=== PATIENT | male | born 1965 | race Asian ===

== ENCOUNTER 2018-09-21 21:03 | Emergency (ER) | payer BC ==
[~2018-09-21 21:03] MED LIST: ISOVUE-370 76%-LOCM 1 ML ONE
[2018-09-21 21:49] LABS: #Basophils 0.1 thou/uL (0.0-0.2); #Eosinphils 0.1 thou/uL (0.0-0.7); #Lymphocytes 1.7 thou/uL (1.20-3.40); #Monocytes 0.4 thou/uL (0.11-0.59); #Neutrophils 2.9 thou/uL (1.40-6.50); %Basophils 1.4 % (0.0-1.0); %Eosinophils 1.5 % (0.0-10.0); %Lymphocytes 32.9 % (21.0-51.0); %Neutrophils 57.3 % (42.0-75.0); Hemoglobin 13.4 g/dL (14.0-18.0); Mean Corpuscular HGB CONC 33.8 g/dL (32.0-36.0); Mean Corpuscular Hemoglobin 33.2 pg (27.0-31.0); Mean Corpuscular Volume 98.2 fL (78.0-98.0); Mean Platelet Volume 6.8 fL (7.4-10.4); Platelet Count 334 thou/uL (130-400); RBC Distribution Width 11.1 % (11.5-14.5); Red Blood Cell (RBC) Count 4.02 mill/uL (4.70-6.10); White Blood Cell (WBC) Count 5.1 thou/uL (4.8-10.8)
[2018-09-21 21:58] LABS: INR-International Normal Ratio 1.1; PTT 33.3 SEC (22.9-36.1); Prothrombin Time 13.9 SEC (12.0-14.7)
[2018-09-21 22:09] LABS: ALT (SGPT) 14 U/L (8-55); AST (SGOT) 18 U/L (5-34); Albumin 3.9 g/dL (3.5-5.0); Alkaline Phosphatase 59 U/L (40-150); Anion Gap 11 mmol/L (10-20); BUN (Urea Nitrogen) 17 mg/dL (8.4-25.7); Bilirubin, Total 0.3 mg/dL (0.2-1.2); Calc. Creatinine Clearance 0 mL/min (70-130); Calcium 8.2 mg/dL (7.8-10.44); Carbon Dioxide 27 mmol/L (22-29); Chloride 108 mmol/L (98-107); Estimated GFR-MDRD 66; Globulin 2.5 g/dL (2.4-3.5); Glucose 114 mg/dL (70-105); Potassium 4.1 mmol/L (3.5-5.1); Protein, Total 6.4 g/dL (6.0-8.3); Sodium 142 mmol/L (136-145)
--- NOTE | 2018-09-22 07:46 | CT ---
CT OF ABDOMEN AND PELVIS WITH CONTRAST: INDICATION: Postprocedural GI bleeding, abdominal pain. FINDINGS: No significant abnormalities at the imaged lung bases are seen. There is a small hypoattenuation wit hin the right hepatic lobe, too small to further characterize. The spleen and pancreas are unremarka ble. No hydronephrosis of either kidney. No evidence of adrenal mass. The bowel is incompletely ev aluated without enteric contrast. There are diffuse-opacified loops of bowel. Paucity of intraabdom inal fat limits visualized intraabdominally. The contrast-opacified abdominal aorta is nonaneurysmal with mild vascular calcification. No free air. No significant ascites is visualized. The imaged s keletal structures reveal no acute process. IMPRESSION: 1. Limited evaluation of the unopacified bowel. If there is clinical concern for active GI bleeding , recommend followup with tagged red cell nuclear medicine GI bleeding exam. 2. Nonspecific fluid-filled bowel is seen throughout. This includes loops of colon. Recommend humberto elation to exclude evidence of gastroenteritis. POS: CHANTAL
== END 2018-09-22 02:23 | disposition home or self-care (01) ==
LOC: ERS 21:03
DX: K91.840 Postprocedural hemorrhage of a digestive system organ or structure following a digestive system procedure (principal)
CPT/HCPCS: 36415; 74177; 80053; 85025; 85610; 85730; 86850; 86900; 86901

== ENCOUNTER 2018-09-22 19:03 | Inpatient (IN) | payer BC ==
[2018-09-22 19:41] LABS: #Lymphocytes 1.4 thou/uL (1.20-3.40); #Monocytes 0.5 thou/uL (0.11-0.59); #Neutrophils 5.4 thou/uL (1.40-6.50); %Basophils 0.6 % (0.0-1.0); %Eosinophils 0.6 % (0.0-10.0); %Lymphocytes 19.1 % (21.0-51.0); %Monocytes 6.6 % (0.0-10.0); %Neutrophils 73.1 % (42.0-75.0); Hemoglobin 10.5 g/dL (14.0-18.0); Mean Corpuscular HGB CONC 34.2 g/dL (32.0-36.0); Mean Corpuscular Hemoglobin 33.6 pg (27.0-31.0); Mean Corpuscular Volume 98.2 fL (78.0-98.0); Mean Platelet Volume 6.9 fL (7.4-10.4); Platelet Count 297 thou/uL (130-400); RBC Distribution Width 11.2 % (11.5-14.5); Red Blood Cell (RBC) Count 3.14 mill/uL (4.70-6.10); White Blood Cell (WBC) Count 7.4 thou/uL (4.8-10.8)
[2018-09-22 19:47] LABS: INR-International Normal Ratio 1.1
[2018-09-22 20:02] LABS: ALT (SGPT) 12 U/L (8-55); AST (SGOT) 15 U/L (5-34); Albumin 3.7 g/dL (3.5-5.0); Alkaline Phosphatase 54 U/L (40-150); Anion Gap 9 mmol/L (10-20); BUN (Urea Nitrogen) 16 mg/dL (8.4-25.7); Bilirubin, Total 0.3 mg/dL (0.2-1.2); Calc. Creatinine Clearance 0 mL/min (70-130); Carbon Dioxide 27 mmol/L (22-29); Chloride 107 mmol/L (98-107); Estimated GFR-MDRD Greater than 90; Globulin 2.3 g/dL (2.4-3.5); Glucose 128 mg/dL (70-105); Potassium 3.3 mmol/L (3.5-5.1); Sodium 140 mmol/L (136-145)
[2018-09-22 22:57] VITALS: BMI 18.6
[2018-09-23] MEDS ORDERED: Sodium Chloride 0.9% 1,000 ML IV SCH (00:30)
[2018-09-23] MEDS ORDERED: Ondansetron PF 4 MG/2 ML Vial IVP PRN (00:31)
[2018-09-23] MEDS ORDERED: Acetaminophen 325 MG TAB PO PRN (00:31)
[2018-09-23] MEDS ORDERED: Ondansetron ODT 4 MG TAB PO PRN (00:31)
[2018-09-23] MEDS: Sodium Chloride 0.9% 1,000 ML IV SCH ×3 (01:17→18:58)
--- NOTE | 2018-09-23 02:23 | HP ---
CHIEF COMPLAINT: Bloody stools. HISTORY OF PRESENT ILLNESS: Mr. Judge is a 53-year-old man who presents with complaints of bloody bowel movements. He underwent a colonoscopy yesterday and states he was found to have colitis. Reports having a bowel movement that was very thin and small with some blood mixed in. Today, however, he has had several episodes of bright red blood per rectum with a small amount of stool, but felicia blood per rectum. He reports feeling slightly lightheaded, but denies any syncope. Reports mild shortness of breath today. Denies having any chest pain or palpitations. The patient denies any abdominal pain, distention, or cramping. He is not on any blood thinners. Denies any medical comorbidities except for known colitis. REVIEW OF SYSTEMS: He denies having any fevers, chills, or sweats. Apart from those mentioned above in HPI, all other review of systems are negative. PAST MEDICAL HISTORY: Colitis. PAST SURGICAL HISTORY: 1. He has had oral surgery x2 in the past. 2. Recent colonoscopy done yesterday. SOCIAL HISTORY: The patient reports drinking 1-2 alcoholic beverages a week. States he drinks socially. Denies any drug use. He does not smoke. ALLERGIES: NO KNOWN DRUG ALLERGIES. CURRENT MEDICATIONS: None. PHYSICAL EXAMINATION: GENERAL: The patient appears thin, well developed, and in no acute distress. VITAL SIGNS: Temperature 98.6, pulse 74, respirations 18, blood pressure 109/62, O2 saturation 99% on room air. HEENT: Normocephalic and atraumatic. Pupils are equal, round, and reactive to light. Sclerae are without icterus. Oropharynx is clear. NECK: Supple with no lymphadenopathy. LUNGS: Clear to auscultation bilaterally without wheezes, rales, or rhonchi. CARDIAC: Regular rate and rhythm without audible murmurs, rubs, or gallops. ABDOMEN: Soft, nontender, nondistended. Hyperactive bowel sounds present. No guarding or rigidity. No renal angle tenderness. EXTREMITIES: Without edema or swelling. NEUROLOGIC: Alert and oriented x3. SKIN: Without rash or jaundice. LABORATORY DATA: White blood count 7.4, hemoglobin 10.5, hematocrit 30.8, platelets 297. PT 14, INR 1.1, PTT 29.6. Sodium 140, potassium 3.3, anion gap 9, BUN 16, creatinine 0.86, GFR greater than 90, glucose 128, calcium 8, total bilirubin 0.3, AST 15, ALT 12, alkaline phosphatase 54, total protein 6, albumin 3.7, globulin 2.3. Hemoglobin obtained yesterday was 13.4. IMAGING DATA: CT of the abdomen and pelvis, 09/21/2018. Limited evaluation of unopacified bowel. Nonspecific fluid-filled bowel seen throughout. This includes loops of colon. Recommend correlation to exclude evidence of gastroenteritis. IMPRESSION AND PLAN: Mr. Judge is a pleasant 53-year-old man who is status post a colonoscopy done on 09/21/2018, presented to the ER due to bloody stools. He is being admitted for management of the following. 1. Anemia. Hemoglobin done on 09/21 was 13.4, and after presenting with bloody stools, a hemoglobin in the ED was low at 10.5. The patient has had one additional bloody stool in the ER. He denies having any associated abdominal pain. No hematemesis, nausea, or vomiting. We will obtain a stat H and H and if further reduce, we will transfuse with packed red blood cells. His blood pressure is 109/62. We will continue to monitor. He is not tachycardic. Not experiencing any symptoms of lightheadedness or shortness of breath at present. He is found resting comfortably. We will continue to monitor and we will give IV fluids. Consult has been placed to GI. 2. Hypokalemia. Replace potassium and continue to monitor electrolytes. 3. Gastrointestinal prophylaxis. 4. Deep venous thrombosis prophylaxis with mechanical SCDs only. No pharmacoprophylaxis, given the GI bleed. 5. Full code status. His surrogate decision maker . The patient's case was discussed with Dr. Ruelas, who agrees with plan of care as described above. Job ID: [id number]
[2018-09-23 08:36] LABS: #Basophils 0.1 thou/uL (0.0-0.2); #Eosinphils 0.1 thou/uL (0.0-0.7); #Lymphocytes 2.8 thou/uL (1.20-3.40); #Monocytes 0.6 thou/uL (0.11-0.59); #Neutrophils 4.4 thou/uL (1.40-6.50); %Basophils 0.8 % (0.0-1.0); %Lymphocytes 35.4 % (21.0-51.0); %Neutrophils 55.7 % (42.0-75.0); Mean Corpuscular HGB CONC 33.4 g/dL (32.0-36.0); Mean Corpuscular Hemoglobin 31.5 pg (27.0-31.0); Mean Corpuscular Volume 94.2 fL (78.0-98.0); Mean Platelet Volume 7.1 fL (7.4-10.4); Platelet Count 254 thou/uL (130-400); RBC Distribution Width 13.8 % (11.5-14.5); Red Blood Cell (RBC) Count 3.19 mill/uL (4.70-6.10); White Blood Cell (WBC) Count 7.8 thou/uL (4.8-10.8)
[2018-09-23 08:58] LABS: ALT (SGPT) 11 U/L (8-55); AST (SGOT) 13 U/L (5-34); Albumin 3.4 g/dL (3.5-5.0); Alkaline Phosphatase 47 U/L (40-150); Anion Gap 7 mmol/L (10-20); BUN (Urea Nitrogen) 12 mg/dL (8.4-25.7); Bilirubin, Total 0.7 mg/dL (0.2-1.2); Calc. Creatinine Clearance 86 mL/min (70-130); Calcium 7.8 mg/dL (7.8-10.44); Carbon Dioxide 26 mmol/L (22-29); Chloride 111 mmol/L (98-107); Estimated GFR-MDRD Greater than 90; Globulin 1.9 g/dL (2.4-3.5); Glucose 109 mg/dL (70-105); Potassium 4.1 mmol/L (3.5-5.1); Protein, Total 5.3 g/dL (6.0-8.3); Sodium 140 mmol/L (136-145)
[2018-09-23] MEDS ORDERED: Heparin 1,000 UNITS/ML VIAL ONE (09:00)
[2018-09-23] MEDS ORDERED: GoLYTELY 4,000 ml Bottle PO SCH (10:00)
--- NOTE | 2018-09-23 11:20 | PRG ---
DATE OF SERVICE: 09/23/2018 SUBJECTIVE: The patient is seen and examined at bedside. He is still having bloody stools. He was just seen by Dr. Alaniz, who wants to do colonoscopy this afternoon. He is getting prepped for the procedure. OBJECTIVE: VITAL SIGNS: Blood pressure is 119/84, pulse is 76, temperature 97.9, respirations are 18, and O2 saturation is 97% on room air. His orthostatics are not positive. HEENT: His head is atraumatic and normocephalic. Eyes are PERRLA. Sclerae are nonicteric. Conjunctivae palish. Oral mucosa is moist. NECK: Supple. LUNGS: Clear. HEART: S1 and S2, normal. No S3. No S4. No murmur. ABDOMEN: Soft and nontender. Bowel sounds are present. No organomegaly. EXTREMITIES: No clubbing, cyanosis, or edema. NEUROLOGIC: He is alert and oriented x4. There is no any motor or sensory deficits present. Cranial nerves are intact. LABORATORY DATA: Labs showed white count of 7.8, hemoglobin 10.0, hematocrit 30.1, and platelet count is 254,000. Sodium 140, potassium 4.1, chloride 111, CO2 of 26, BUN 12, creatinine 0.78, total protein 5.3, albumin 3.4, globulin 1.9, and glucose 109. IMPRESSION: 1. GI bleeding, status post colonoscopy. Hemoglobin was down to 8, now it is improved to 10 with help of 2 units of packed red blood cells which were transfused. Clinically, he is not orthostatic. He seems to be doing relatively well, but Dr. 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 2. Anemia secondary to gastrointestinal blood loss. 3. Hypokalemia, replaced. We will continue IV fluids. We will continue prep for his colonoscopy. We will keep checking his hemoglobin and hematocrit levels. Job ID: [id number]
[2018-09-23] MEDS ORDERED: Sodium Chloride 0.9% 500 ML IVPB SCH (12:45)
[2018-09-23 13:27] LABS: Hemoglobin 8.2 g/dL (14.0-18.0)
[2018-09-23] MEDS ORDERED: PROPOFOL 200 MG/20 ML VIAL ONE (13:40)
--- NOTE | 2018-09-23 16:19 | CON ---
DATE OF CONSULTATION: 09/23/2018 REASON FOR CONSULTATION: Bloody stool. 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 Antonio 2 days ago. 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 The colonoscopy was done 2 days ago was for followup exam, which showed some nonspecific aphthous ulcers and mild inflammation characterized as loss of vascularity and erythema. Biopsies were taken. There was no lesion or polyps that needed to be removed. After getting home, he began passing liquid bloody stools characterized as dark of blood along with some bright red blood. He had a total of 6 bowel movements over a span of 36 hours. He finally presented to the emergency room last night and was admitted for further evaluation. His baseline hemoglobin had been 14. In the ER, his hemoglobin was down to 10 g/dL. Overnight, it did drop down to 8 g/dL. Since then, he did receive 1 unit RBC transfusion. Hemoglobin this morning was 10. He had some twinges sensation at the left lower quadrant, but denies any abdominal pain. There is no nausea or vomiting. There is mild lightheadedness, but no other major orthostatic symptoms. This morning, he did have one further episode of bloody bowel movements. PAST MEDICAL HISTORY: 1. Indeterminate colitis. 2. Essentially healthy without any other medical illness or surgery. MEDICATIONS: At home, none. ALLERGIES: NONE. SOCIAL HISTORY: The patient infrequently consume alcohol, has no alcohol usage. Does not have any illicit drug use. FAMILY HISTORY: Negative for any known GI problem, liver disease, or GI malignancy. REVIEW OF SYSTEMS: Ten-point review of systems was all negative. No pertinent positives or negatives. PHYSICAL EXAMINATION: VITAL SIGNS: Temperature is 97.9, blood pressure 119/84, and pulse is 76. GENERAL: He is alert, sitting by bedside in no distress. HEENT: Shows anicteric sclerae. Oropharynx clear. NECK: Supple. CARDIOVASCULAR: Shows normal S1 and S2. Regular rate and rhythm. CHEST: Shows breath sounds. ABDOMEN: Soft, nontender, flat. There is no distention. No tympany. No organomegaly. Active bowel sounds. EXTREMITIES: Show no edema. LABORATORY DATA: WBC 7.8, hemoglobin 10.0 after 1 unit RBC, baseline hemoglobin of 14, and platelet count of 254. INR is 1.1, PTT 29.6. Electrolytes are within normal range. Creatinine is 0.78. LFTs are normal. ASSESSMENT: 1. Recurrent hematochezia without much abdominal pain or any other symptoms following outpatient colonoscopy with biopsies taken. The patient has evidence of ongoing bleeding. 2. Anemia from gastrointestinal blood loss. 3. History of indeterminate colitis. RECOMMENDATIONS: 1. Continue to monitor his blood count. 2. Urgent bowel prep to be followed by colonoscopy today to elucidate source of bleeding to control if necessary. 3. Further recommendation to follow, pending above findings. Job ID: [id number]
--- NOTE | 2018-09-23 21:42 | NM ---
NUCLEAR MEDICINE GI BLEEDING SCAN: DATE: 09/23/2018 HISTORY: 53-year-old male with lower GI bleeding TECHNIQUE: 27 mCi of technetium 99m-tagged erythrocytes injected IV. Dynamic anterior scintigraphy of abdomen and pelvis for 90 minutes. FINDINGS: There is no evidence of active GI bleeding. IMPRESSION: Negative
[2018-09-23 22:05] LABS: Hemoglobin 8.3 g/dL (14.0-18.0)
[2018-09-24] MEDS: Sodium Chloride 0.9% 1,000 ML IV SCH ×4 (01:54→23:34)
[2018-09-24 05:56] LABS: #Basophils 0.1 thou/uL (0.0-0.2); #Eosinphils 0.1 thou/uL (0.0-0.7); #Lymphocytes 1.5 thou/uL (1.20-3.40); #Monocytes 0.4 thou/uL (0.11-0.59); #Neutrophils 3.4 thou/uL (1.40-6.50); %Basophils 0.9 % (0.0-1.0); %Eosinophils 1.4 % (0.0-10.0); %Lymphocytes 28.5 % (21.0-51.0); %Monocytes 6.6 % (0.0-10.0); %Neutrophils 62.6 % (42.0-75.0); Hemoglobin 7.7 g/dL (14.0-18.0); Mean Corpuscular HGB CONC 34.7 g/dL (32.0-36.0); Mean Corpuscular Hemoglobin 32.3 pg (27.0-31.0); Mean Platelet Volume 7.5 fL (7.4-10.4); Platelet Count 168 thou/uL (130-400); RBC Distribution Width 13.4 % (11.5-14.5); Red Blood Cell (RBC) Count 2.37 mill/uL (4.70-6.10); White Blood Cell (WBC) Count 5.4 thou/uL (4.8-10.8)
[2018-09-24 06:14] LABS: Anion Gap 8 mmol/L (10-20); BUN (Urea Nitrogen) 7 mg/dL (8.4-25.7); Calc. Creatinine Clearance 97 mL/min (70-130); Calcium 6.7 mg/dL (7.8-10.44); Carbon Dioxide 23 mmol/L (22-29); Chloride 111 mmol/L (98-107); Estimated GFR-MDRD Greater than 90; Glucose 82 mg/dL (70-105); Potassium 3.3 mmol/L (3.5-5.1); Sodium 139 mmol/L (136-145)
--- NOTE | 2018-09-24 07:54 | OP ---
DATE OF PROCEDURE: 09/23/2018 PROCEDURES PERFORMED: 1. Ileal colonoscopy. 2. Esophagogastroduodenoscopy. PREPROCEDURE DIAGNOSIS: Ongoing gastrointestinal hemorrhage. POSTPROCEDURE DIAGNOSES: 1. Copious amount of bloody fluid throughout the colon and in the ileum. 2. Numerous small aphthous superficial ulcers in the proximal colon without any discrete bleeding. 3. Normal upper endoscopy. DESCRIPTION OF PROCEDURE: Written consents were obtained prior to procedure. After adequate sedation, rectal exam performed was normal. The endoscope was advanced with great difficulty throughout the colon as there was a copious amount of bloody fluid. The distal ileum was intubated. There was bloody effluent in the ileum despite vigorous and prolonged irrigation. The cecum was thoroughly irrigated and suctioned. There was evidence of fresh hemorrhage coming from the ileum filling the cecum sporadically. On slow withdrawal, the entire colon was irrigated to visualize the mucosa, although this was somewhat suboptimal. Numerous small aphthous ulcers were seen in the proximal colon up to the transverse. There was no discrete source of bleeding or any area of fresh hemorrhage noted along the entire length of the colon. It was visualized, the cecum, ascending, transverse, descending, and rectosigmoid colon appeared normal. Retroflexion showed grade 1 internal hemorrhoids. The patient was then repositioned for upper endoscopy. The upper scope was advanced down the stomach through the pylorus into the third portion of duodenum. The duodenum appeared normal. Pylorus was patent. The gastric antrum, body, fundus, and cardia all appeared normal. Retroflexion did not show any abnormality. The Z-line was well demarcated at 40 cm from the incisors. The entire esophagus appeared normal. ASSESSMENT: 1. Scattered aphthous ulcers, small and shallows in the proximal colon without any discrete bleeding. 2. No obvious source of bleeding coming from the distal 10 cm of the ileum and colon, although there were signs of fresh blood coming down from the ileum. 3. Normal upper endoscopy. PLAN: We will get tagged RBC nuclear bleeding scan. Job ID: [id number]
--- NOTE | 2018-09-24 09:40 | NM ---
GI BLEEDING SCAN DELAYED IMAGE: History: GI bleed COMPARISON: Previous day FINDINGS: A delayed image after 14 hours of radiopharmaceutical injection demonstrates no abnormalities of trac er localization in the abdomen or pelvis. IMPRESSION: No evidence of GI bleed.
[2018-09-24] MEDS ORDERED: Potassium Chloride 20 MEQ TAB PO SCH (13:45)
--- NOTE | 2018-09-24 14:04 | PRG ---
DATE OF SERVICE: 09/24/2018 SUBJECTIVE: The patient is seen and examined at bedside. He did not have more any bloody diarrhea since yesterday before the procedure and he is feeling better. OBJECTIVE: VITAL SIGNS: Blood pressure is 108/69, pulse is 77, temperature is 98.4, respirations 16, and O2 saturation is 98% on room air. HEENT: His head is atraumatic and normocephalic. Eyes, PERRLA. Sclerae nonicteric. Conjunctivae palish. Oral mucosa is palish. NECK: Supple. LUNGS: Clear. HEART: S1 and S2 normal. ABDOMEN: Soft and nontender. Bowel sounds are present. No organomegaly. EXTREMITIES: No clubbing, cyanosis, or edema. NEUROLOGIC: He is alert and oriented x4. There is no any motor or sensory deficit present. Cranial nerves are intact. LABORATORY DATA: Showed white count of 5.4, hemoglobin 7.7, hematocrit 22.0, and platelet count is 168,000. Sodium is 139, potassium 3.3, chloride 111, CO2 of 23, BUN 7, creatinine 0.69, and calcium 6.7. IMAGING STUDIES: On two images on nuclear medicine scan for the bleeding, both of them are negative. IMPRESSION: 1. Gastrointestinal bleeding, status post colonoscopy and esophagogastroduodenoscopy. Hemoglobin is down to 7.7. It looks like his bleeding is stopped. He is feeling better. 2. Anemia, secondary to gastrointestinal blood loss. 3. Hypokalemia. We will replace again. 4. Hypocalcemia. We will check magnesium level. We will check ionized calcium, and if it is low, we will supplement with calcium. Job ID: [id number]
[2018-09-24] MEDS ORDERED: Calcium Carbonate 500 MG ChewTAB PO SCH (14:15)
--- NOTE | 2018-09-24 16:07 | PRG ---
DATE OF SERVICE: 09/24/2018 REASON FOR CONSULTATION: Hematochezia/GI bleeding. SUBJECTIVE: The patient states that he is feeling a little better today and has not had any further episodes of hematochezia since the colonoscopy yesterday. He has been able to tolerate some clear liquids without difficulty. Otherwise, he denies any nausea, vomiting, fevers, chills, hematemesis, melena, abdominal pain, dysphagia, or odynophagia. OBJECTIVE: VITAL SIGNS: Temperature 98.4, pulse 77, blood pressure 108/69, respiratory rate 16, saturating 98% on room air. GENERAL: The patient is lying in bed, in no acute distress. Alert and oriented x4. CARDIOVASCULAR: Regular rate and rhythm. RESPIRATORY: Clear to auscultation bilaterally. ABDOMEN: Normoactive bowel sounds. Soft, nontender, nondistended. EXTREMITIES: No cyanosis, clubbing, or edema. LABORATORY DATA: CBC with a white blood cell count of 5.4, hemoglobin 7.7, hematocrit 22, platelets 168. Chemistry with a sodium of 139, potassium 3.3, chloride 111, CO2 of 23, BUN 7, creatinine 0.69, glucose 82. IMAGING DATA: Nuclear tagged red cell scan was obtained on September 23, 2018, which did not show any evidence of active GI bleeding. Repeat tagged cell scan was performed on September 24, 2018, with delayed imaging also not showing an evidence of active GI bleeding. ASSESSMENT AND PLAN: The patient is a 53-year-old male with a past medical history of indeterminate colitis seen on colonoscopy both in 2007 and 2018, presenting with overt hematochezia. Hematochezia. In 2017, the patient underwent a screening colonoscopy as part of screening for colonic neoplasm. During that colonoscopy, he was noted to have multiple areas throughout the colon consistent with aphthous-appearing ulcerations concerning for the presence of inflammatory bowel disease. Biopsies at that time were indeterminate for inflammatory bowel disease, and given his asymptomatic nature, the decision was made to follow the patient with a repeat colonoscopy in 1 year. He subsequently underwent a repeat colonoscopy on September 20, 2018, which showed fewer areas of colitis within the colon, but did have areas of aphthous-appearing ulcerations within the terminal ileum, ascending colon and hepatic flexure with biopsy still pending at this time. However, within 24 hours after the colonoscopy, he experienced the acute onset of larger amounts of bright red blood per rectum with at times bowel movements consisting of nothing, but blood. He was subsequently evaluated in the ER and noted to have a stable H and H and discharged to home with plans to follow up in the GI Clinic. However, after being discharged from the ER, he did experience increased blood per rectum again with re-evaluation in the ER showing a significant decrease of his hemoglobin and hematocrit as well as some changes in hemodynamic stability. He was subsequently admitted to the hospital for further evaluation and underwent both an upper and lower endoscopy on September 24, 2018. The upper endoscopy was completely normal and did not show any evidence of active/recent bleeding nor any etiologies like contribute to that diagnosis. However, during the colonoscopy, a large amount of bloody fluid was seen throughout the entire colon as well as within the terminal ileum. However, no etiology for his bleeding was seen during that examination despite visualization of the terminal ileum and the cecum filling with the bloody fluid even after examination of the terminal ileum. At this time, actually upon review of the CT scan obtained on September 21, 2018, there is an area of slight enhancement within the terminal ileum that upon conferring with the radiologist could be a potential source of bleeding. However, given his recent colonoscopy, it seems like this area of bleeding is outside the reach of the standard colonoscope. Upon evaluation of the patient today, he has not had any further episodes of hematochezia, and while he has had a slight decrease in his H and H, it does not appear that he is actively bleeding at this time. RECOMMENDATIONS: 1. Would continue to trend H and H and transfuse as necessary to maintain an H and H of 7/21. 2. Continue to monitor clinically for signs of active GI bleeding. 3. I would hold the patient overnight with re-evaluation of his H and H in the morning. If his H and H continue to fall, I would consider transfer to [facility] in [place] for small bowel enteroscopy for evaluation of the possible bleeding site within the terminal ileum seen on CT scan (not on the tagged red cell scan). 4. If the patient's H and H remain stable, then would consider discharging the patient to home within the next 24 to 48 hours and follow up in the GI clinic for capsule endoscopy to evaluate the small bowel for possible bleeding source. We will continue to follow. Please call with any questions. Job ID: [id number]
[2018-09-24] MEDS: Calcium Carbonate 500 MG ChewTAB PO SCH (20:08)
[2018-09-25] MEDS: Sodium Chloride 0.9% 1,000 ML IV SCH ×2 (06:23→17:24)
[2018-09-25 06:56] LABS: #Eosinphils 0.1 thou/uL (0.0-0.7); #Lymphocytes 1.4 thou/uL (1.20-3.40); #Monocytes 0.5 thou/uL (0.11-0.59); #Neutrophils 3.1 thou/uL (1.40-6.50); %Basophils 0.7 % (0.0-1.0); %Eosinophils 1.2 % (0.0-10.0); %Lymphocytes 27.7 % (21.0-51.0); %Monocytes 9.1 % (0.0-10.0); %Neutrophils 61.2 % (42.0-75.0); Hemoglobin 7.7 g/dL (14.0-18.0); Mean Corpuscular Hemoglobin 32.2 pg (27.0-31.0); Mean Corpuscular Volume 92.1 fL (78.0-98.0); Mean Platelet Volume 7.6 fL (7.4-10.4); Platelet Count 197 thou/uL (130-400); RBC Distribution Width 13.3 % (11.5-14.5); Red Blood Cell (RBC) Count 2.38 mill/uL (4.70-6.10)
[2018-09-25 07:13] LABS: Anion Gap 8 mmol/L (10-20); BUN (Urea Nitrogen) 5 mg/dL (8.4-25.7); Calc. Creatinine Clearance 90 mL/min (70-130); Calcium 7.4 mg/dL (7.8-10.44); Carbon Dioxide 26 mmol/L (22-29); Chloride 109 mmol/L (98-107); Estimated GFR-MDRD Greater than 90; Glucose 94 mg/dL (70-105); Potassium 3.6 mmol/L (3.5-5.1); Sodium 139 mmol/L (136-145)
[2018-09-25] MEDS: Calcium Carbonate 500 MG ChewTAB PO SCH ×2 (08:07→20:49)
[2018-09-25] MEDS ORDERED: Magnesium Sulfate 4 GM in Sodium Chloride 0.9% 250 ML 250 ML IVPB SCH (08:30)
--- NOTE | 2018-09-25 13:49 | PRG ---
DATE OF SERVICE: 09/25/2018 SUBJECTIVE: The patient is seen and examined at the bedside. He is doing better. He is able to get up and walk to the bathroom. He is not dizzy and he is not weak like he used to be. He is still on clear liquids. OBJECTIVE: VITAL SIGNS: Blood pressure is 114/71, pulse is 66, respiratory rate is 18, O2 saturation is 99, and temperature is 98.5. HEENT: His head is atraumatic and normocephalic. Eyes are PERRLA. Sclerae are nonicteric. Conjunctivae palish. Oral mucosa is moist. NECK: Supple. LUNGS: Clear. HEART: S1, S2 normal. ABDOMEN: Soft, nontender. Bowel sounds are present. No organomegaly. EXTREMITIES: No clubbing, cyanosis, or edema. NEUROLOGICAL: He is alert and oriented x4. There is no any sensory or motor deficit present. Cranial nerves are intact. LABORATORY DATA: Labs showed white count of 5.0, hemoglobin 7.7, hematocrit 21.9. Sodium 139, potassium 3.6, chloride 109, CO2 of 26, BUN 5, creatinine 0.74, calcium 7.4, magnesium 1.3. IMPRESSION: 1. Gastrointestinal bleeding status post colonoscopy and esophagogastroduodenoscopy. Hemoglobin is stable at 7.7. He did not have any bowel movement since the time prior to the last colonoscopy. 2. Anemia secondary to gastrointestinal blood loss. 3. Hypokalemia. Replaced. 4. Hypomagnesemia. He will receive 4 g of magnesium sulfate. We are going to check his magnesium level again before he goes tomorrow morning. PLAN: Basically to advance his diet as tolerated today. Check his hemoglobin in the morning and check his magnesium level and potassium early in the morning and discharge him home for followup with GI for a capsular endoscopy. Job ID: [id number]
--- NOTE | 2018-09-25 20:02 | PRG ---
DATE OF SERVICE: 09/25/2018 REASON FOR CONSULTATION: Hematochezia, GI bleeding. SUBJECTIVE: The patient states that he is feeling better today and was able to ambulate around the [place] without much shortness of breath when compared to previous. He did have minimal spotting of blood with a bowel movement this morning, but has had 2 bowel movements later today with the presence of no blood at all. He has been able to tolerate a full liquid diet without any difficulty. Otherwise, he denies any nausea, vomiting, fevers, chills, hematemesis, melena, abdominal pain, dysphagia, or odynophagia. OBJECTIVE: VITAL SIGNS: Temperature 98.3, pulse 79, blood pressure 118/72, respiratory rate 16, and saturating 98% on room air. GENERAL: The patient was lying in bed, in no acute distress. Alert and oriented x4. CARDIOVASCULAR: Regular rate and rhythm. RESPIRATORY: Clear to auscultation bilaterally. ABDOMEN: Normoactive bowel sounds. Soft, nontender, nondistended. EXTREMITIES: No cyanosis, clubbing, or edema. LABORATORY DATA: CBC with a white blood cell count of 5, hemoglobin 7.7, hematocrit 21.9, platelets 197. Chemistry with a sodium 139, potassium 3.6, chloride 109, CO2 of 26, BUN 6, creatinine 0.74, glucose 94. IMAGING DATA: No current GI imaging is available for review. 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 Hematochezia. The patient has had multiple colonoscopies within the last year that have shown areas within the colon concerning for inflammatory bowel disease/indeterminate colitis. As part of that followup, he did receive a repeat colonoscopy on September 20, 2018, which again showed these areas of aphthous ulcerations within the terminal ileum, ascending colon and hepatic flexure. However, within 24 hours after the colonoscopy, he experienced acute onset of hematochezia that continued over the next few days and prompted him to seek healthcare assistance at [facility]. During this hospitalization, he has undergone both upper and lower endoscopy with no overt etiology for his bleeding seen. However, during the colonoscopy, there was blood seen emanating from the ileocecal valve, making a small bowel bleed more likely. Upon review of the CT scan obtained from September 21, 2018, there is a slight area of enhancement within the terminal ileum that could be a potential source of bleeding. However, over the last 24 to 48 hours he has had stabilization of his hemoglobin and hematocrit and has had either minimal or no evidence of further episodes of hematochezia. When coupled with the negative tagged red cell scans, the likelihood of active GI bleeding is low at this time. RECOMMENDATIONS: 1. We will continue to trend his hemoglobin and hematocrit and transfuse as necessary to maintain a hemoglobin and hematocrit of 7/21 while inpatient. 2. Continue to monitor clinically for signs of active GI bleeding. 3. If the patient's hemoglobin and hematocrit does decrease, I would consider transfer to [facility] for small bowel enteroscopy. 4. We would advance the patient's diet as tolerated and if hemoglobin and hematocrit are stable in the morning, then discharging to home with outpatient followup in the GI Clinic with capsule endoscopy would be reasonable. We will continue to follow. Please call with any questions. Job ID: [id number] [email or web address]
[2018-09-26] MEDS: Sodium Chloride 0.9% 1,000 ML IV SCH ×2 (01:00→07:27)
[2018-09-26] MEDS: Calcium Carbonate 500 MG ChewTAB PO SCH (07:27)
[2018-09-26 08:11] LABS: #Eosinphils 0.1 thou/uL (0.0-0.7); #Lymphocytes 1.4 thou/uL (1.20-3.40); #Monocytes 0.4 thou/uL (0.11-0.59); #Neutrophils 3.2 thou/uL (1.40-6.50); %Basophils 0.6 % (0.0-1.0); %Eosinophils 1.9 % (0.0-10.0); %Lymphocytes 28.1 % (21.0-51.0); %Monocytes 7.3 % (0.0-10.0); %Neutrophils 62.1 % (42.0-75.0); Anion Gap 7 mmol/L (10-20); BUN (Urea Nitrogen) 6 mg/dL (8.4-25.7); Calc. Creatinine Clearance 91 mL/min (70-130); Calcium 7.7 mg/dL (7.8-10.44); Carbon Dioxide 26 mmol/L (22-29); Chloride 110 mmol/L (98-107); Estimated GFR-MDRD Greater than 90; Glucose 93 mg/dL (70-105); Hemoglobin 7.7 g/dL (14.0-18.0); Magnesium 1.7 mg/dL (1.6-2.6); Mean Corpuscular HGB CONC 33.8 g/dL (32.0-36.0); Mean Corpuscular Hemoglobin 31.6 pg (27.0-31.0); Mean Corpuscular Volume 93.3 fL (78.0-98.0); Mean Platelet Volume 7.7 fL (7.4-10.4); Platelet Count 236 thou/uL (130-400); Potassium 3.7 mmol/L (3.5-5.1); RBC Distribution Width 13.3 % (11.5-14.5); Red Blood Cell (RBC) Count 2.43 mill/uL (4.70-6.10); Sodium 139 mmol/L (136-145); White Blood Cell (WBC) Count 5.1 thou/uL (4.8-10.8)
[2018-09-26 11:32] VITALS: BP 124/78; TEMP 98
--- NOTE | 2018-09-26 12:14 | DIS ---
DATE OF ADMISSION: 09/22/2018 DATE OF DISCHARGE: 09/25/2018 DIAGNOSES AT THE TIME OF DISCHARGE: 1. Gastrointestinal bleeding, status post colonoscopy and esophagogastroduodenoscopy. Hemoglobin is stable at 7.7. 2. Anemia secondary to gastrointestinal blood loss. 3. Hypokalemia, replaced. 4. Hypomagnesemia, replaced. CONSULTANTS: 1. Dr. Alaniz, GI. 2. Dr. Antonio, GI. PROCEDURES: Esophagogastroduodenoscopy and ileal colonoscopy results, 1. Copious amount of blood, fluid throughout the colon and in the ileum. 2. Numerous small obtuse superficial ulcers in the proximal colon without any discrete bleeding and normal upper endoscopy. HOSPITAL COURSE: The patient is a 53-year-old male, who presents with complaints of bloody bowel movements. Apparently, he underwent colonoscopy the day before this admission, found to have colitis. However, he had several episodes of bright red blood per rectum with small amount of stool. He denied any syncope. He was lightheaded and mildly short of breath. At the time of emergency room evaluation, his white count was 7.4, hemoglobin 10.5, hematocrit 30.8, and platelet count is 297. INR was 1.1 with PT of 14 and APTT 29.6. Potassium was 3.3, sodium 140, BUN 16, and creatinine 0.86. He had normal liver function test. Imaging showed a CT of the abdomen and pelvis done on the 21 of September showed nonspecific fluid filled bowel seen throughout. This included loops of colon and the patient was seen by ice skater, Dr. Alaniz, who did EGD and colonoscopy with above-mentioned findings. Also, he had GI bleed scan done, which did not show any evidence of bleeding. He was transfused with 2 units of packed red blood cells since his hemoglobin dropped the next day to 8.2, then it went up to 8.3, and he had additional serial hemoglobin and hematocrit and it is stable at 7.7 for the last 3 days. He did not have more bloody diarrhea. He is feeling somewhat weak, but better than before to tolerate his food without any nausea or vomiting. He was seen by Dr. Antonio yesterday and he is okay to discharge him home this morning if his hemoglobin is stable. His blood pressure is in 120s and he is not tachycardic, so he is going to be discharged home today on regular diet. Activities as tolerated. We explained to him to take it easy because he gets slightly lightheaded when he gets up. His medications at the time of discharge after he is going to contact Dr. Antonio regarding his iron supplementation, but for now, he is not going to use any medications up with Dr. Antonio for outpatient capsule endoscopy in his office and he will follow up with the primary care physician in 1 week and the discharge time spent is less than 30 minutes. Job ID: [id number]
--- NOTE | 2018-09-29 07:13 | PQF ---
ADILSON ALVARADO, ALICE A MD [id number] [id number] CLINICAL DOCUMENTATION CLARIFICATION FORM: POST DISCHARGE Addendum to original discharge summary date: ____ Late entry note date: __ DATE: 09/29/18 ATTN: Dr. Brown, Please exercise your independent, professional judgment in responding to the clarification form. Clinical indicators are provided on the bottom of this form for your review Please check appropriate box(s): [ x ] Acute blood loss anemia [ ] Chronic Anemia: [ ] Blood loss [ ] Hemolytic [ ] Simple [ ] Due to Vitamin B12 Deficiency [ ] Other [ ] Anemia of Chronic Disease (please specify) [ ] Other diagnosis [ ] Unable to determine In addition, please specify: Present on Admission (POA): [ x ] Yes [ ] No [ ] Unable to determine For continuity of documentation, please document condition throughout progress notes and discharge summary. Thank You. CLINICAL INDICATORS - SIGNS / SYMPTOMS / LABS Anemia---09/22 H&P Anemia from gastrointestinal blood loss--Discharge Summary and 09/23 consult Tachycardic--09/22 ED physician note HGB:10.5 HCT: 30.8--09/22 Labs HGB: 10.0 HCT: 30.1 09/23 Labs RISK FACTORS Ongoing GI bleed--09/23 OP note Bloody stools--09/22 H&P TREATMENTS: Transfusion of blood products-[facility]--performed 09/23/18 Thank you, Sulma Tinoco, MELISSA 09/29/18@7:10AM (This form is maintained as a part of the permanent medical record) 2014 [employer]. All Rights Reserved [email or web address] [phone] [facility]ITAL[facility]
== END 2018-09-26 12:47 | disposition home or self-care (01) | DRG 378 ==
LOC: ERS 19:03 → OBSVTOIN 21:13 → T4-B 21:13
PROVIDERS: ADMIT Hospitalist; ATTEND Hospitalist
PROC: 0DJD8ZZ Inspection of Lower Intestinal Tract, Via Natural or Artificial Opening Endoscopic (ICD-10-PCS; principal; 2018-09-23)
PROC: 0DJ08ZZ Inspection of Upper Intestinal Tract, Via Natural or Artificial Opening Endoscopic (ICD-10-PCS; 2018-09-23)
PROC: 30233N1 Transfusion of Nonautologous Red Blood Cells into Peripheral Vein, Percutaneous Approach (ICD-10-PCS; 2018-09-23)
DX: K92.2 Gastrointestinal hemorrhage, unspecified (principal); K63.3 Ulcer of intestine; D62 Acute posthemorrhagic anemia; E87.6 Hypokalemia; E83.42 Hypomagnesemia; K64.0 First degree hemorrhoids; E83.51 Hypocalcemia; Z98.890 Other specified postprocedural states
CPT/HCPCS: 36415; 36430; 74177; 78278; 80048; 80053; 82040; 83735; 85014; 85018; 85025; 85610; 85730; 86850; 86900; 86901; 99285; A9604; J1644; J2704; J3475; J7050; P9016; Q9966